=== PATIENT | male | born 1960 | race Caucasian/White ===

== ENCOUNTER → 2023-11-26 | Outpatient (CLI) | payer SELFPAY, OTHER ==
--- NOTE | 2023-11-26 07:50 | ECHOD_ITS ---
Reason For Study: DYSPNEA Procedure This was a 2D Doppler, Color Flow transthoracic echocardiogram. Exam performed in department. Left Ventricle Normal LV size. Left ventricular systolic function is normal. The left ventricular ejection fraction is 60 %. Stage 1 diastolic dysfunction. No regional wall motion abnormalities noted. Right Ventricle Normal RV size. Normal systolic function. Atria Normal left atrium. Normal right atrium. Mitral Valve Normal mitral valve. Tricuspid Valve Normal tricuspid valve. Mild tricuspid valve insufficiency. Pulmonary artery systolic pressure is 25 mmHg. Aortic Valve Normal aortic valve. Trisinus/trileaflet aortic valve. Pulmonic Valve Normal pulmonic valve. Great Vessels Normal aortic root. The pulmonary artery is normal size. Normal inferior vena cava. Pericardium/Pleural No pericardial effusion. MMode/2D Measurements & Calculations LVIDd: 4.7 cm IVSd: 0.98 cm LVOT diam: 2.3 cm LVIDs: 3.3 cm LVPWd: 0.80 cm LVOT area: 4.1 cm2 RVDd: 3.8 cm FS: 30.2 % Ao root diam: 3.4 cm LAV(MOD-bp): 54.3 ml LVAd ap4: 29.0 cm2 LAV(MOD-bp) Indexed: 32.0 ml/m2 LVLd ap4: 7.9 cm LAV(MOD-sp2): 73.9 ml EDV(MOD-sp4): 87.0 ml LAV(MOD-sp4): 38.4 ml EDV(sp4-el): 89.8 ml LVAs ap4: 16.2 cm2 LVLs ap4: 6.5 cm ESV(MOD-sp4): 33.5 ml ESV(sp4-el): 34.2 ml EF(MOD-sp4): 61.5 % EF(sp4-el): 61.9 % LVAd ap2: 30.2 cm2 SV(MOD-sp4): 53.5 ml SV(MOD-sp2): 63.0 ml LVLd ap2: 8.1 cm EDV(MOD-sp2): 95.8 ml EDV(sp2-el): 96.2 ml LVAs ap2: 15.7 cm2 LVLs ap2: 6.5 cm ESV(MOD-sp2): 32.8 ml ESV(sp2-el): 31.9 ml EF(MOD-sp2): 65.7 % SV(sp4-el): 55.6 ml LA dimension(2D): 3.3 cm LA A4 area: 16.4 cm2 RA A4 area: 19.5 cm2 TAPSE: 2.6 cm Time Measurements MV dec time: 0.22 sec Doppler Measurements & Calculations MV E max ad: 43.7 cm/sec Lat Peak E' Ad: 10.8 cm/sec Med Peak E' Ad: 9.0 cm/sec MV A max ad: 48.9 cm/sec E/E' lat: 4.1 E/E' med: 4.9 MV E/A: 0.89 Ao V2 max: 103.0 cm/sec LV V1 max: 84.9 cm/sec MV dec slope: 200.1 cm/sec2 Ao max P.2 mmHg LV V1 max P.9 mmHg Ao V2 mean: 74.5 cm/sec LV V1 mean P.8 mmHg Ao mean P.5 mmHg LV V1 mean: 63.3 cm/sec Ao V2 VTI: 26.4 cm LV V1 VTI: 22.2 cm AV (velocity ratio): 0.84 BRANDON(I,D): 3.4 cm2 BRANDON(V,D): 3.4 cm2 SV(LVOT): 90.9 ml PA V2 max: 84.2 cm/sec TR max ad: 229.5 cm/sec PA max PG (full): 1.7 mmHg TR max P.1 mmHg ECHO/Echo Complete Interpretation Summary Normal LV size. Left ventricular systolic function is normal. The left ventricular ejection fraction is 60 %. Stage 1 diastolic dysfunction. Structurally normal valves. Ordering Physician: Cory Valladares Referring Physician: Cory Valladares MD Performed By: Fany Ortiz RDCS
== END | disposition home or self-care (01) ==
LOC: CVS 07:46
PROVIDERS: Referring Provider Internal Medicine Cardiovascular Disease; Visit Provider Internal Medicine Cardiovascular Disease
DX: R06.00 Dyspnea, unspecified (principal)
CPT/HCPCS: 93306